=== PATIENT | female | born 1980 | race Caucasian/White ===

== ENCOUNTER 2017-09-11 10:24 | Inpatient (IN) | payer OTHER ==
[~2017-09-11] VITALS: Ht 162.6 cm; Wt 65.8 kg
[2017-09-11 10:36] VITALS: BP 117/87
--- NOTE | 2017-09-11 10:41 | NUR ---
Patient to bed 03.
--- NOTE | 2017-09-11 10:50 | NUR ---
PT PRESENTS TO ER FOR EVALUATION OF RIGHT HIP ABSCESS; ERYTHEMA AND SWELLING NOTED TO ABSCESS; NO DRAINAGE AT THIS TIME; PT STATES SHE HAS HAD COSMETIC WORK DENVER TO BUTTOCK X 1 MONTH AGO; PT DENIES RECENT FEVERS; DENIES N/V/D; SKIN IS PINK/WARM/DRY; AOX4 WITH EVEN AND STEADY GAIT; RR ARE EVEN AND UNLABORED; PATIENT STATES PAIN OF "SHARP" NONRAIDIATING 8/10 TO RIGHT HIP AT THIS TIME; VSS; PATIENT POSITIONED FOR COMFORT; BED DOWN. ER MD MADE AWARE OF PT STATUS.
--- NOTE | 2017-09-11 11:01 | NUR ---
Dr. Cano evaluating patient at bedside.
[2017-09-11] MEDS ORDERED: CLINDAMYCIN 600 MG in DEXTROSE 5% 50 ML IV ONE (11:05)
[2017-09-11] MEDS ORDERED: MORPHINE SULFATE 4 MG/ML SYR IVP ONE ×2 (11:05→15:10)
[2017-09-11] MEDS ORDERED: ONDANSETRON 4 MG/2 ML VIAL IVP ONE ×2 (11:05→15:10)
--- NOTE | 2017-09-11 11:20 | NUR ---
LAB BY BEDSIDE
[2017-09-11 11:37] LABS: BASOPHILS # (AUTO) 0.1 K/uL (0.00-0.22); BASOPHILS % (AUTO) 1.3 % (0.0-2.0); EOSINOPHILS # (AUTO) 0.1 K/uL (0-0.4); EOSINOPHILS % (AUTO) 0.6 % (0.0-4.0); HEMATOCRIT 37.9 % (36-48); HEMOGLOBIN 12.2 g/dL (12.0-16.0); LYMPHOCYTES # (AUTO) 1.6 K/uL (2.5-16.5); LYMPHOCYTES % (AUTO) 13.8 % (20.5-51.1); MEAN CORPUSCULAR HEMOGLOBIN 29 pg (27-31); MEAN CORPUSCULAR HGB CONC 32 g/dL (33-37); MEAN CORPUSCULAR VOLUME 89 fL (80-94); MONOCYTES # (AUTO) 1.2 K/uL (0.8-1.0); MONOCYTES % (AUTO) 10.7 % (1.7-9.3); NEUTROPHILS # (AUTO) 8.3 K/uL (1.8-7.7); NEUTROPHILS % (AUTO) 73.6 % (42.2-75.2); PLATELET COUNT (AUTO) 424 K/uL (140-450); RED BLOOD CELL COUNT(AUTO) 4.25 MIL/uL (4.20-5.40); RED CELL DISTRIBUTION WIDTH 12.7 % (11.6-13.7); WHITE BLOOD COUNT (AUTO) 11.3 K/uL (4.8-10.8)
[2017-09-11] MEDS ORDERED: CLINDAMYCIN 600 MG/4 ML VIAL ONE (11:41)
--- NOTE | 2017-09-11 11:58 | NUR ---
lab called for results of urine ; er md blanchard notified and aware
[2017-09-11 11:59] LABS: APPEARANCE,URINE HAZY (CLEAR); BILIRUBIN,URINE NEGATIVE (NEGATIVE); BLOOD, URINE NEGATIVE (NEGATIVE); COLOR,URINE YELLOW (YELLOW); LEUKOCYTE ESTERASE ,URINE NEGATIVE (NEGATIVE); NITRITE, URINE NEGATIVE (NEGATIVE); UGLUCOSE NEGATIVE (NEGATIVE)
[2017-09-11 11:59] LABS: ANION GAP 6.6 (8-16); CARBON DIOXIDE 29.9 mmol/L (21-32); CREATININE 0.7 mg/dL (0.6-1.3); POTASSIUM 3.5 mmol/L (3.5-5.1)
[2017-09-11 12:04] LABS: PROTHROMBIN TIME 10.4 secs (10.8-13.4)
[2017-09-11 12:15] LABS: BARBITURATE, URINE NEG. ng/ml (NEG <=200); BENZODIAZEPINE, URINE NEG. ng/mL (NEG <=200); CANNABINOID, URINE NEG. ng/mL (NEG <=50); COCAINE, URINE NEG. ng/mL (NEG <=300); OPIATE, URINE NEG. ng/mL (NEG <=2000); PHENCYCLIDINE SCREEN,URINE NEG. ng/mL (NEG <=25)
--- NOTE | 2017-09-11 12:30 | NUR ---
Patient taken to CT via wheelchair per tech.
--- NOTE | 2017-09-11 13:02 | NUR ---
PT RESTING WITH EYES CLOSED IN [facility]; NAD; VSS; WILL CONTINUE TO MONTIOR
--- NOTE | 2017-09-11 15:01 | NUR ---
PT RESTING WITH EYES CLOSED IN [facility]; PT WITH NO COMPLAINTS; NAD; VSS
[2017-09-11] MEDS ORDERED: LORazepam 2 MG/ML VIAL IVP PRN (15:15)
[2017-09-11] MEDS ORDERED: VANCOMYCIN PER PHARMACY MC PRN (15:15)
[2017-09-11] MEDS ORDERED: ONDANSETRON 4 MG/2 ML VIAL IVP PRN (15:15)
--- NOTE | 2017-09-11 15:35 | NUR ---
Patient will be admitted to care of MD JEAN BAPTISTE. Admited to Med Surg. Will go to room 112A. Belongings list completed. Report to Connie SALGADO.
[2017-09-11] MEDS: NACL 0.9% 1,000 ML IV SCH (16:04)
--- NOTE | 2017-09-11 16:15 | NUR ---
PATIENT WAS TRANSFERRED TO THE UNIT FROM ER WITH DX OF RIGHT LATERAL BUTTOCK ABSCESS. PATIENT AMBULATED TO BED WITH STEADY GAIT. VITAL SIGN WAS TAKEN. NARES WERE SWAPPED FOR MRSA AND SENT TO LAB. PATIENT IS ORIENTED TO STAFF, ROOM, CALL LIGHT WITHIN REACH. INITIAL ASSESSMENT WAS DONE AT BEDSIDE. PATIENT A/O X 4, PUPILS EQUAL REACTIVE TO LIGHT, LUNGS SOUND CLEAR THROUGHOUT, CARDIAC WITH REGULAR RHYTHM. SKIN INTACT, DRY AND WARM TO THE TOUCH, WITH AN INTACT WOUND ON THE RIGHT LATERAL BUTTOCK. BOWEL SOUND ACTIVE ON 4 QUADRANTS. VERBALIZED PAIN 10/10 ON THE WOUND AREA. IV 20G ON RIGHT AC, INTACT, PATENT, WILL HANG NS 100ML/HR. WILL CONTINUE TO MONITOR
[2017-09-11] MEDS: HYDROcodone/APAP 5/325 MG 1 TAB TAB PO PRN (16:19)
[2017-09-11 16:36] VITALS: BP 95/56
[2017-09-11] MEDS: VANCOMYCIN 1GM/DEXT 5% PREMIX 200 ML IV SCH (17:11)
--- NOTE | 2017-09-11 18:32 | NUR ---
PATIENT IS AWAKE, ALERT, WATCHING TV. NO DISTRESS NOTED. CALL LIGHT WITHIN REACH. WILL CONTINUE TO MONITOR Addendum: 09/11/17 at 1835 by Varsha Aquino RN IV INTACT, PATENT, IV FLUID INFUSING, NO COMPLAIN OF PAIN AT THIS TIME
--- NOTE | 2017-09-11 19:14 | NUR ---
ENDORSEMENT GIVEN TO PROCTOLOGIST NURSE, PATIENT IS STABLE, NO DISTRESS NOTED. CALL LIGHT WITHIN REACH.
--- NOTE | 2017-09-11 19:15 | NUR ---
RECEIVED BEDSIDE REPORT FROM DAY SHIFT NURSE, PT STABLE, NO DISTRESS NOTED, AAO X4, IV TO THE R AC 20G RUNNING NS @ 100ML/HR, INFUSING WELL, SKIN INTACT, ALL SAFETY PRECAUTION MET, INITIAL ASSESSMENT COMPLETED, CALL LIGHT WITHIN REACH, FAMILY BY BEDSIDE, WILL CONTINUE TO MONITOR.
[2017-09-11 20:00] VITALS: BP 110/55
[2017-09-11] MEDS: PIPER/TAZO 3.375GM/D5W PREMIX 50 ML IV SCH (20:22)
[2017-09-11] MEDS: MORPHINE SULFATE 2 MG/ML SYR IVP PRN (20:23)
--- NOTE | 2017-09-11 20:23 | NUR ---
DUE MEDICATION GIVEN, PT C/O OF PAIN 04/15, MEDICATION GIVEN, PT TOLERATED WELL, NO DISTRESS NOTED, CALL LIGHT WITHIN REACH, WILL CONTINUE TO MONITOR.
[2017-09-11] MEDS ORDERED: PIPERACILLIN/TAZOBACTAM 3.375 GM in DEXTROSE 5% 50 ML IV SCH (21:00)
[2017-09-12] VITALS: BP 94/56
[2017-09-12] MEDS: ACETAMINOPHEN 325 MG TAB PO PRN ×2 (00:21→04:22)
--- NOTE | 2017-09-12 00:21 | NUR ---
PT TEMP 101, MEDICATION TYLENOL GIVEN, PT TOLERATED WELL, CALL LIGHT WITHIN REACH, WILL CONTINUE TO MONITOR.
--- NOTE | 2017-09-12 01:15 | NUR ---
RECHECKED PT TEMPERATURE, T 101.2, PT SLEEPING, NO COMPLAIN OF PAIN, CALL LIGHT WITHIN REACH, WILL CONTINUE TO MONITOR.
[2017-09-12] MEDS: NACL 0.9% 1,000 ML IV SCH ×3 (01:32→20:21)
--- NOTE | 2017-09-12 04:22 | NUR ---
PT C/O OF CHILLS AND MILD PAIN, T 99.1, PAIN 3/10, MEDICATED WITH TYLENOL, PT STABLE, NO DISTRESS NOTED, CALL LIGHT WITHIN REACH, WILL CONTINUE TO MONITOR.
[2017-09-12] MEDS: PIPER/TAZO 3.375GM/D5W PREMIX 50 ML IV SCH ×3 (04:36→20:28)
[2017-09-12] MEDS: VANCOMYCIN 1GM/DEXT 5% PREMIX 200 ML IV SCH ×2 (05:43→17:50)
--- NOTE | 2017-09-12 05:43 | NUR ---
DUE MEDICATION GIVEN, PT TOLERATED WELL, NO DISTRESS NOTED, CALL LIGHT WITHIN REACH, WILL CONTINUE TO MONITOR.
[2017-09-12 06:38] LABS: BASOPHILS # (AUTO) 0.1 K/uL (0.00-0.22); BASOPHILS % (AUTO) 0.8 % (0.0-2.0); EOSINOPHILS # (AUTO) 0.1 K/uL (0-0.4); EOSINOPHILS % (AUTO) 0.9 % (0.0-4.0); HEMATOCRIT 32.7 % (36-48); HEMOGLOBIN 10.8 g/dL (12.0-16.0); LYMPHOCYTES # (AUTO) 1.7 K/uL (2.5-16.5); LYMPHOCYTES % (AUTO) 12.9 % (20.5-51.1); MEAN CORPUSCULAR HEMOGLOBIN 29 pg (27-31); MEAN CORPUSCULAR HGB CONC 33 g/dL (33-37); MEAN CORPUSCULAR VOLUME 89 fL (80-94); MONOCYTES # (AUTO) 1.5 K/uL (0.8-1.0); MONOCYTES % (AUTO) 11.1 % (1.7-9.3); NEUTROPHILS # (AUTO) 9.7 K/uL (1.8-7.7); NEUTROPHILS % (AUTO) 74.3 % (42.2-75.2); PLATELET COUNT (AUTO) 416 K/uL (140-450); RED BLOOD CELL COUNT(AUTO) 3.68 MIL/uL (4.20-5.40); RED CELL DISTRIBUTION WIDTH 12.6 % (11.6-13.7); WHITE BLOOD COUNT (AUTO) 13.1 K/uL (4.8-10.8)
[2017-09-12 06:52] LABS: CARBON DIOXIDE 26.9 mmol/L (21-32); CREATININE 0.7 mg/dL (0.6-1.3); POTASSIUM 3.9 mmol/L (3.5-5.1)
--- NOTE | 2017-09-12 07:10 | NUR ---
ENDORSED PT TO AM NURSECHARLENE RN, PT RESTING NO DISTRESS NOTED, CALL LIGHT WITHIN REACH.
--- NOTE | 2017-09-12 07:43 | NUR ---
RECEIVED PT IN BED. AWAKE. ALERT ORIENTEDX4. NO SOB NOTED. DENIES ANY PAIN OR DISCOMFORT AT THIS TIME. AWAITING 0R MUSIC HISTORIAN FOR I&D UNDER DR. JEAN BAPTISTE. CONSENT AND TICKET TO RIDE, IN TO CHART. PT AMBULATORY SAFETY PRECAUTION IN PLACE. CALL LIGHT WITHIN REACH.
[2017-09-12 07:50] VITALS: BP 103/57
--- NOTE | 2017-09-12 07:50 | NUR ---
OR STAFF CAME TO CERTIFIED DIALYSIS TECHNICIAN PT. NO SOB NOTED. PT ON STABLE CONDITION.
[2017-09-12] MEDS ORDERED: BUPIVACAINE-MPF 0.25% 30 ML VIAL INJ ONE (08:33)
[2017-09-12] MEDS ORDERED: SEVOFLURANE 250 ML BTL INH ONE (08:46)
[2017-09-12] MEDS ORDERED: DEXAMETHASONE 4 MG/ML VIAL IVP ONE (08:46)
[2017-09-12] MEDS ORDERED: PROPOFOL 200 MG/20 ML VIAL IV ONE (08:46)
[2017-09-12] MEDS ORDERED: ONDANSETRON 4 MG/2 ML VIAL IVP ONE (08:46)
--- NOTE | 2017-09-12 08:55 | NUR ---
PATIENT HAS BEEN SCREENED AND CATEGORIZED HIGH NUTRITION RISK. PATIENT WILL BE SEEN WITHIN 1-2 DAYS OF ADMISSION. 09/12/17 -09/13/[address]
[2017-09-12] MEDS: ENOXAPARIN 40 MG/0.4 ML SYR SUBQ SCH (09:00)
[2017-09-12] MEDS ORDERED: MORPHINE SULFATE 4 MG/ML SYR ONE (09:06)
[2017-09-12] MEDS ORDERED: fentaNYL 0.05 MG/ML VIAL ONE (09:06)
[2017-09-12] MEDS ORDERED: MIDAZOLAM 2 MG/2 ML VIAL ONE (09:06)
--- NOTE | 2017-09-12 09:35 | NUR ---
FAXED INITIAL REVIEW TO [facility] [phone] PHONE BRENDA [phone]
[2017-09-12] MEDS ORDERED: MORPHINE SULFATE 4 MG/ML SYR IVP PRN ×2 (09:45)
[2017-09-12] MEDS ORDERED: MIDAZOLAM 2 MG/2 ML VIAL IV ONE (09:45)
[2017-09-12] MEDS ORDERED: METOCLOPRAMIDE 10 MG/2 ML INJ VIAL IVP PRN (09:45)
[2017-09-12] MEDS ORDERED: MORPHINE SULFATE 2 MG/ML SYR IVP PRN (09:45)
--- NOTE | 2017-09-12 10:26 | NUR ---
PT CAME BACK FROM OR. NO SOB NOTED. DENIES ANY PAIN OR DISCOMFORT AT THIS TIME. DRESSING ON RIGHT BUTTOCK DRY AND INTACT. VITAL SIGNS TAKEN AND RECORDED.
[2017-09-12 10:30] VITALS: BP 104/62
--- NOTE | 2017-09-12 12:48 | NUR ---
09/12/17 RD INITIAL ASSESSMENT COMPLETED PLEASE REFER TO NUTRITION ASSESSMENT UNDER CARE ACTIVITY FOR ESTIMATED NUTRITIONAL NEEDS. 1. CONTINUE REGULAR DIET TOLERATED PER MD 2. RD TO FOLLOW-UP 5-7 DAYS, LOW RISK JOSE MARCIAL RD
[2017-09-12 16:00] VITALS: BP 87/65
--- NOTE | 2017-09-12 17:26 | NUR ---
AWAITING CALL BACK FROM DR. JEAN BAPTISTE REGARDING CLARIFICATION FOR DRESSING/PACKING FOR RIGHT BUTTOCK WOUND.
--- NOTE | 2017-09-12 17:53 | NUR ---
PT AWAKE IN BED, WATCHING TV. PT VERBALIZED SHE DOESN'T HAVE ANY PAIN OR DISCOMFORT AT THIS TIME AND SHE FEELS SO HAPPY ABOUT IT.
--- NOTE | 2017-09-12 18:39 | NUR ---
PT KEPT CLEAN, DRY AND COMFORTABLE, NEEDS ATTENDED. NO SOB NOTED DENIES ANY PAIN OR DISCOMFORT AT THIS TIME. DRESSING ON RIGHT BUTTOCK CHANGED, SEROSANGUINOUS DRAINAGE NOTED AND SOAKED PAD. NO ACTIVE BLEEDING NOTED. WILL ENDORSE TO NEXT SHIFT, PT ON STABLE CONDITION, FOR CONTINUITY OF CARE.
--- NOTE | 2017-09-12 19:15 | NUR ---
PATIENT REPORT RECEIVED FROM MORNING NURSE AT BEDSIDE. PATIENT IS AWAKE, ALERT, AND ORIENTED. NO SIGNS AND SYMPTOMS OF DISTRESS NOTED. NO COMPLAINTS OF PAIN AT THIS TIME. IV SITE NOTED ON LEFT FOREARM. IVF INFUSING WELL. BED IN LOWEST POSITION, SIDE RAILS UP AND CALL LIGHT WITHIN REACH. WILL CONTINUE TO MONITOR.
[2017-09-12] MEDS: HYDROcodone/APAP 5/325 MG 1 TAB TAB PO PRN (20:32)
[2017-09-13] VITALS: BP 90/55
[2017-09-13] MEDS: ACETAMINOPHEN 325 MG TAB PO PRN (00:53)
--- NOTE | 2017-09-13 01:00 | NUR ---
DRESSING ON RIGHT BUTTOCK CHANGED DUE TO MODERATE SEROSANGUINOUS DRAINAGE. PACKING FROM OR DOCTOR LEFT IN PLACE. NEW ABD PAD APPLIED. SECURED WITH CLOTH TAPE. PATIENT TOLERATED WELL, DENIES PAIN.
[2017-09-13] MEDS: PIPER/TAZO 3.375GM/D5W PREMIX 50 ML IV SCH ×3 (04:22→21:06)
[2017-09-13] MEDS: VANCOMYCIN 1GM/DEXT 5% PREMIX 200 ML IV SCH (06:03)
[2017-09-13] MEDS: NACL 0.9% 1,000 ML IV SCH ×2 (06:42→18:09)
--- NOTE | 2017-09-13 07:18 | NUR ---
PATIENT REPORT GIVEN TO MORNING NURSE. PATIENT IS IN STABLE CONDITION
--- NOTE | 2017-09-13 07:18 | NUR ---
SPOKE WITH BRENDA FROM [facility] ON 09/12 SHE SAID FOR HOME HEALTH USE [facility]. FAX INFORMATION TO [facility] AT [phone].
--- NOTE | 2017-09-13 08:00 | NUR ---
PT RECEIVED IN BED AWAKE ALERT AND ORIENTED X4. PT IS RESPONSIVE TO VERBAL COMMAND APPROPRIATELY AND FOLLOWS COMMAND. PT DENIES ANY PAIN AT THIS TIME. DRESSING TO THE RIGHT BUTTOCKS INTACT. PT IS ASYMPTOMATIC WITH BP IN THE LOW 90'S.
[2017-09-13 08:18] VITALS: BP 90/54
[2017-09-13] MEDS: HYDROcodone/APAP 5/325 MG 1 TAB TAB PO PRN ×2 (08:50→18:09)
--- NOTE | 2017-09-13 09:00 | NUR ---
PT MEDICATED WITH NORCO 1 TAB PO FOR C/O RIGHT BUTTOCKS PAIN 03/15 AT 0850.
[2017-09-13] MEDS: ENOXAPARIN 40 MG/0.4 ML SYR SUBQ SCH (09:06)
[2017-09-13] MEDS ORDERED: ACET-2863 PO (09:40)
--- NOTE | 2017-09-13 11:59 | NUR ---
FAXED CONCURRENT REVIEW TO [facility] [phone] PHONE BRENDA [phone]
--- NOTE | 2017-09-13 13:15 | NUR ---
PT AWAKE IN BED WATCHING TV. PT IS ABLE TO AMBULATE TO THE BATHROOM WITHOUT ANY ASSISTANCE OR C/O DIZZINESS. IVF REMAINS INFUSING ORDERED.
[2017-09-13] MEDS: VANCOMYCIN 750 MG in DEXTROSE 5% 250 ML IV SCH ×2 (13:49→21:06)
--- NOTE | 2017-09-13 14:03 | NUR ---
CALLED DR. RUTHERFORD FOR TASHA RESULT BLOOD CULTURE GRAM POSITIVE COCCI IN [place], HE ORDERED TO CANCEL THE D/C FOR TODAY. SHELBI OLSEN MADE AWARE.
[2017-09-13] MEDS: MORPHINE SULFATE 2 MG/ML SYR IVP PRN (14:09)
--- NOTE | 2017-09-13 14:10 | NUR ---
PT IN BED AWAKE AND RESTING. WOUND CARE NURSE IS AT THE BED SITE TO DO DRESSING CHANGE. MORPHINE SULFATE 2MG IVP GIVEN AT 1409 FOR PAIN 07/16. DR RUTHERFORD WAS NOTIFIED ABOUT GRAM + COCCI IN CLUSTER FROM WOUND CULTURE. DISCHARGE HOME IS CANCELLED FOR TODAY.
[2017-09-13] MEDS ORDERED: ABDOMINAL PAD TP PRN (14:30)
--- NOTE | 2017-09-13 14:33 | NUR ---
WOUND CARE EDUCATION PROVIDES TO PT. PT VERBALIZES UNDERSTAND. ALSO, REQUEST HOME HEALTH FOR WOUND TREATMENT UPON DISCHARGE. PLAN OF CARE DISCUSSED WITH PRIMARY RN AND CHARGE NURSE.
--- NOTE | 2017-09-13 15:20 | NUR ---
DISCHARGE CANCELED TODAY. I CALLED [facility] AND BRENDA FROM [facility] AND INFORMED THEM.
--- NOTE | 2017-09-13 15:22 | NUR ---
FAXED RESULTS OF BLOOD CULTURE AND CULTURE OF WOUND TO [facility] [phone] PHONE [phone]
[2017-09-13 16:37] VITALS: BP 92/63
--- NOTE | 2017-09-13 19:39 | NUR ---
PT UP SITTING IN BED AWAKE ALERT AND CAM. PT WAS MEDICATED WITH NORCO AT 1809 FOR RIGHT BUTTOCK PAIN 5. IVF REMAINS INFUSING ORDERED. PT'S FAMILY AT THE BED SIDE WITH PT. NO ACUTE DISTRESS NOTED.
--- NOTE | 2017-09-13 19:40 | NUR ---
RECD. RESTING IN BED, AWAKE, A/OX4. RESPIRATION EVEN AND UNLABORED. IV OF NS AT 100 ML/HR INFUSING, LEFT FOREARM G22. INCISION IN THE RIGHT BUTTOCKS, COVERED WITH DRESSING, DRY AND INTACT. PAIN IN THE SITE 11/15, STATED TOLERABLE, WILL MEDICATE ORDERED.PLAN OF CARE FOR THE SHIFT DISCUSSED. VERBALIZED UNDERSTANDING.
[2017-09-13 20:00] VITALS: BP 85/51
--- NOTE | 2017-09-13 21:35 | NUR ---
INFORMED DR. SHEA, ON-CALL FOR DR. RUTHERFORD, PATIENT BP IN THE LOW SIDE, 83/45 ON THE RIGHT AND 85/51 ON THE LEFT ARM, ORDERED ALBUMIN IV FOR PATIENT.
[2017-09-13] MEDS ORDERED: ZOLPIDEM 5 MG TAB PO PRN (21:45)
[2017-09-13] MEDS ORDERED: HYDROcodone/APAP 5/325 MG 1 TAB TAB PO PRN (21:45)
--- NOTE | 2017-09-13 22:40 | NUR ---
UNABLE TO SLEEP, MEDICATED WITH AMBIEN 5 MG. ORDERED.
--- NOTE | 2017-09-13 23:22 | NUR ---
INFORMED DR. SHEA, PATIENT MICROBIOLOGY RESULT, MRSA OF THE WOUND AND PRELIMINARY RESULT OF BLOOD CULTURE, PATIENT HAS GRAM POSITIVE COCCI. NO NEW ORDER MADE.
[2017-09-14 00:34] VITALS: BP 83/48
[2017-09-14] MEDS: ALBUMIN HUMAN 25% 100 ML IV PRN ×2 (00:34→02:46)
--- NOTE | 2017-09-14 00:34 | NUR ---
BP STILL IN THE LOW SIDE, BP RIGHT ARM, 78/41, HR - 56, LEFT ARM - 83/49, HR - 58. MEDICATED WITH ALBUMIN 25% IVPB BY DAMIAN ALBARRAN ORDERED.
--- NOTE | 2017-09-14 02:46 | NUR ---
2ND ALBUMIN DOSE GIVEN BY DAMIAN ALBARRAN ORDERED.
[2017-09-14] MEDS: NACL 0.9% 1,000 ML IV SCH ×2 (03:12→13:33)
--- NOTE | 2017-09-14 04:50 | NUR ---
2 BOTTLES ALBUMIN INFUSED BY RN, BP CHECKED - 90/52, HR -60. RESTING COMFORTABLY SLEEPING IN BED.
[2017-09-14] MEDS: PIPER/TAZO 3.375GM/D5W PREMIX 50 ML IV SCH ×3 (04:53→21:00)
[2017-09-14] MEDS: VANCOMYCIN 750 MG in DEXTROSE 5% 250 ML IV SCH ×3 (04:56→21:00)
[2017-09-14 06:53] LABS: BASOPHILS # (AUTO) 0.2 K/uL (0.00-0.22); BASOPHILS % (AUTO) 4.1 % (0.0-2.0); EOSINOPHILS # (AUTO) 0.1 K/uL (0-0.4); HEMATOCRIT 31.5 % (36-48); HEMOGLOBIN 10.2 g/dL (12.0-16.0); LYMPHOCYTES # (AUTO) 2.7 K/uL (2.5-16.5); LYMPHOCYTES % (AUTO) 46.2 % (20.5-51.1); MEAN CORPUSCULAR HEMOGLOBIN 29 pg (27-31); MEAN CORPUSCULAR HGB CONC 33 g/dL (33-37); MEAN CORPUSCULAR VOLUME 90 fL (80-94); MONOCYTES # (AUTO) 0.5 K/uL (0.8-1.0); MONOCYTES % (AUTO) 7.7 % (1.7-9.3); NEUTROPHILS # (AUTO) 2.4 K/uL (1.8-7.7); PLATELET COUNT (AUTO) 518 K/uL (140-450); RED BLOOD CELL COUNT(AUTO) 3.51 MIL/uL (4.20-5.40); RED CELL DISTRIBUTION WIDTH 12.3 % (11.6-13.7); WHITE BLOOD COUNT (AUTO) 5.9 K/uL (4.8-10.8)
[2017-09-14 07:16] LABS: ANION GAP 9.9 (8-16); CARBON DIOXIDE 29.9 mmol/L (21-32); CREATININE 0.6 mg/dL (0.6-1.3); POTASSIUM 3.8 mmol/L (3.5-5.1)
--- NOTE | 2017-09-14 07:20 | NUR ---
ENDORSED TO AM NURSE FOR CONTINUITY OF CARE.
--- NOTE | 2017-09-14 07:21 | NUR ---
RECEIVED REPORT FROM PROFESSOR SCULPTURE NURSE AT BEDSIDE FOR CONTINUITY OF CARE. PT IS LYING IN BED RIGHT NOW. INTRODUCED SELF AND UPDATED BOARD. NO SIGNS OF DISTRESS WILL CONTINUE TO MONITOR.
[2017-09-14 08:00] VITALS: BP 97/57
[2017-09-14] MEDS ORDERED: VANC1PLA9 IV (09:26)
[2017-09-14] MEDS: ENOXAPARIN 40 MG/0.4 ML SYR SUBQ SCH (09:52)
--- NOTE | 2017-09-14 15:02 | NUR ---
CM NOTE PER JAYLEEN FROM [facility], UNABLE TO DO IV ABX TX; NO IV NURSE AVAILABLE. PER YEIMI FROM [facility], UNABLE TO DO IV ABX TX, NO IV NURSE AVAILABLE. FAXED INFORMATION TO LEIGH ANN FROM [facility]. BECAUSE OF THE FREQUENCY OF IV ABX, PATIENT & FAMILY WILL HAVE TO BE TAUGHT RE. INFUSION.
--- NOTE | 2017-09-14 15:16 | NUR ---
CM NOTE HOME IV ABX TX ORDER FAXED TO [facility] / FAX# [phone]
[2017-09-14] MEDS ORDERED: NACL 0.9% IRR 250 ML BOTTLE IR SCH (15:30)
[2017-09-14] MEDS ORDERED: ABDOMINAL PAD TP SCH (15:30)
[2017-09-14] MEDS: MORPHINE SULFATE 2 MG/ML SYR IVP PRN (15:34)
--- NOTE | 2017-09-14 15:46 | NUR ---
ADMINISTERED MORPHINE IVP FOR PAIN IN RIGHT HIP. PT STATED PAIN 6/10 AND REQUESTED PAIN MED PRIOR TO DRESSING CHANGE. REMOVED OLD DRESSING AND PACKING. CLEANSED WITH NS AND PATTED DRY WITH GAUZE. PACKED WITH IODOFORM. COVERED WITH 4X4 GAUZE AND ABDOMINAL PAD. SECURED WITH TAPE. PT TOLERATED WELL. PT'S SIGNIFICANT OTHER IS AT BEDSIDE. PT GOT UP TO USE BATHROOM. NO SIGNS OF DISTRESS. WILL CONTINUE TO MONITOR.
[2017-09-14 16:00] VITALS: BP 94/53
--- NOTE | 2017-09-14 16:00 | NUR ---
RECEIVED CALL FROM PICC LINE NURSE. READ LABS PT/INR, BUN/CREATININE, AND ORDER. STATED HE WILL BE ARRIVING AROUND 7PM TONIGHT FOR PICC LINE INSERTION.
--- NOTE | 2017-09-14 18:00 | NUR ---
CHECKED PT IN ROOM. PT'S SIGNIFICANT OTHER IS AT BEDSIDE. PT IS SITTING UP IN BED EATING DINNER. DENIES PAIN. NO SIGNS OF DISTRESS. CALL LIGHT WITHIN REACH. WILL CONTINUE TO MONITOR.
--- NOTE | 2017-09-14 19:24 | NUR ---
ENDORSED PT TO FIELD SAMPLING TECHNICIAN NURSE RAJENDRA AT BEDSIDE FOR CONTINUITY OF CARE. PT IS IN STABLE CONDITION.
--- NOTE | 2017-09-14 19:25 | NUR ---
RECEIVED REPORT FROM DAY SHIFT NURSE AT BED SIDE. PT IS AAOX4. NO DISTRESS NOTED. IV TO LEFT FA #22G AT 100ML/HR. DRESSING TO LEFT HIP, DRY AND INTACT. PT IS ON CONTACT ISOLATION R/T MRSA OF HIP WOUND. WAITING FOR PICC LINE NURSE FOR PICC LINE INSERTION. DISCUSSED PLAN OF CARE, PT VERBALIZED UNDERSTANDING. CALL LIGHT WITHIN REACH. WILL CONTINUE TO MONITOR.
[2017-09-14 20:00] VITALS: BP 90/54
--- NOTE | 2017-09-14 21:05 | NUR ---
PT REFUSED MEDS STATED THAT SHE IS GOING HOME TONIGHT. EXPLAINED TO HER THAT WE'RE STILL WAITING FOR THE PICC LINE NURSE FOR PICC LINE INSERTION. PT STILL REFUSED MEDS.
--- NOTE | 2017-09-14 21:30 | NUR ---
PICC LINE NURSE IS HERE FOR PICC LINE INSERTION.
--- NOTE | 2017-09-14 21:50 | NUR ---
PICC LINE INSERTED TO LEFT UPPER ARM. PT TOLERATED PROCEDURE WELL. XRAY DONE.
--- NOTE | 2017-09-14 22:10 | NUR ---
DISCHARGE PAPERS AND INSTRUCTIONS GIVEN TO PT. IV CANNULA PULLED OUT, TIP INTACT.
--- NOTE | 2017-09-14 22:30 | NUR ---
PT REFUSED TO BE WHEELED OUT. ID BAND REMOVED. PT WALKED TO FRONT LOBBY ACCOMPANIED BY SIGNIFICANT OTHER. PERSONAL BELONGINGS WITH THE PATIENT. PT IN STABLE CONDITION.
--- NOTE | 2017-09-18 09:58 | NUR ---
DIONY COAL CAGER DIRECTOR RECEIVED A CALL FROM THE PATIENT ON HER ANSWERING MACHINE ON MONDAY, 09/15 STATING SHE WAS WAITING FOR HOME HEALTH TO COME. I CALLED KIMBERLEE THIS MORNING AND SHE SAID THAT SCOTT FROM [facility] CAME TO THE HOUSE ON Monday09/16/17 AND CHANGED THE DRESSING AND TAUGHT HER HOW THE DO THE IV INFUSION. KIMBERLEE SAID SHE HADN'T HEARD FROM THE [facility]. I CALLED TITO FROM [facility] AND SHE SAID SHE WAS GOING TO CALL THE PATIENT THIS AM AND WILL HAVE SOMEONE GO TO THE HOUSE TODAY. SCOTT PHONE [phone] PHONE [facility] [phone]. I CALLED KIMBERLEE AND INFORMED HER THAT SCOTT SAID SHE WOULD CALL HER TODAY. I CALLED BRENDA FROM [facility] AND INFORMED HER.
== END 2017-09-14 22:30 | disposition home health service (06) | DRG 720 ==
LOC: MED 10:24 → MTU 15:16
PROVIDERS: ADMIT Hospitalist; ATTEND Hospitalist
PROC: 0Y900ZZ Drainage of Right Buttock, Open Approach (ICD-10-PCS; 2017-09-12)
PROC: 0JB90ZZ Excision of Buttock Subcutaneous Tissue and Fascia, Open Approach (ICD-10-PCS; principal; 2017-09-12 12:50)
PROC: 02HV33Z Insertion of Infusion Device into Superior Vena Cava, Percutaneous Approach (ICD-10-PCS; 2017-09-14)
PROC: B548ZZA Ultrasonography of Superior Vena Cava, Guidance (ICD-10-PCS; 2017-09-14)
DX: A41.9 Sepsis, unspecified organism (principal); E87.1 Hypo-osmolality and hyponatremia; L02.415 Cutaneous abscess of right lower limb; F17.200 Nicotine dependence, unspecified, uncomplicated; L02.31 Cutaneous abscess of buttock; D64.9 Anemia, unspecified; Z98.891 History of uterine scar from previous surgery
CPT/HCPCS: 36415; 71010; 72193; 80048; 80202; 80305; 81003; 81025; 83605; 83735; 85025; 85610; 85730; 87040; 87070; 87075; 87077; 87081; 87186; 87205; 96365; 96375; 96376; 99285; C1751; J1100; J1650; J2250; J2270; J2405; J2543; J2704; J3010; J3370; J3490; J7030; J7060; P9046; Q0092; Q9967

== ENCOUNTER 2020-12-11 10:53 | Emergency (ER) | payer OTHER ==
[~2020-12-11] VITALS: Ht 165.1 cm; Wt 78.0 kg
[~2020-12-11 10:53] MED LIST: HYDR-5080 PO; VANC1PLA9 IV
[2020-12-11 10:57] VITALS: BP 125/87
--- NOTE | 2020-12-11 11:02 | NUR ---
PT AMBULATED TO BED 11, STEADY GAIT.
[2020-12-11] MEDS ORDERED: NACL 0.9% 1,000 ML IV SCH (11:30)
--- NOTE | 2020-12-11 11:31 | NUR ---
40 YEAR OLD FEMALE COMPLAINS OF PAIN IN ABDOMEN X 2 WEEKS. 10/10 PAIN RADIATING THROUGHOUT ABDOMEN, SHARP. DENIED VOMINITING/DIARRHEA, VERBALIZED NAUSEA. PATIENT VERBALIZED BLOATING. NORMAL BOWEL MOVEMENTS, ACTIVE BOWEL SOUNDS THROUGHOUT. PATIENT DENIES PRESENCE OF BLOOD IN STOOL. AO4, BREATHING EVEN AND UNLABORED, SKIN WARM AND DRY. BED IN LOWEST POSITION, LOCKED, X1 SIDERAIL UP. PMH - DENIED NKA
[2020-12-11 11:44] LABS: BASOPHILS % (AUTO) 0.8 % (0.0-2.0); EOSINOPHILS # (AUTO) 0.2 K/uL (0-0.4); EOSINOPHILS % (AUTO) 3.4 % (0.0-4.0); HEMATOCRIT 42.7 % (36-48); HEMOGLOBIN 14.2 g/dL (12.0-16.0); LYMPHOCYTES % (AUTO) 33.3 % (20.5-51.1); MEAN CORPUSCULAR HEMOGLOBIN 30 pg (27-31); MEAN CORPUSCULAR HGB CONC 33 g/dL (33-37); MEAN CORPUSCULAR VOLUME 90.5 fL (80-94); MONOCYTES # (AUTO) 0.6 K/uL (0.8-1.0); MONOCYTES % (AUTO) 10.5 % (1.7-9.3); NEUTROPHILS # (AUTO) 3.2 K/uL (1.8-7.7); PLATELET COUNT (AUTO) 267 K/uL (140-450); RED BLOOD CELL COUNT(AUTO) 4.72 MIL/uL (4.20-5.40); RED CELL DISTRIBUTION WIDTH 13.8 % (11.6-13.7); WHITE BLOOD COUNT (AUTO) 6.1 K/uL (4.8-10.8)
--- NOTE | 2020-12-11 11:57 | NUR ---
Patient taken to CT scan via wheelchair by tech.
[2020-12-11 12:03] LABS: ALBUMIN 4.2 g/dL (3.4-5.0); ANION GAP 16.1 (8-16); CARBON DIOXIDE 22.4 mmol/L (21-32); CREATININE 0.6 mg/dL (0.6-1.3); POTASSIUM 3.5 mmol/L (3.5-5.1); TOTAL BILIRUBIN 0.3 mg/dL (0.0-1.0)
[2020-12-11 12:04] LABS: PROTHROMBIN TIME 8.7 secs (10.8-13.4)
[2020-12-11 13:09] LABS: APPEARANCE,URINE CLEAR (CLEAR); BILIRUBIN,URINE NEGATIVE (NEGATIVE); BLOOD, URINE TRACE-I (NEGATIVE); COLOR,URINE YELLOW (YELLOW); LEUKOCYTE ESTERASE ,URINE NEGATIVE (NEGATIVE); NITRITE, URINE NEGATIVE (NEGATIVE); PH,URINE 5.5 (5.0-9.0); UGLUCOSE NEGATIVE (NEGATIVE)
--- NOTE | 2020-12-11 13:18 | NUR ---
Dr. Gillespie is evaluating the patient at bedside.
[2020-12-11] MEDS ORDERED: ALUMINUM HYD/MAG/SIMETHICONE 30 ML UDC PO ONE (13:20)
[2020-12-11] MEDS ORDERED: FAMOTIDINE 20 MG/2 ML VIAL IVP ONE (13:20)
--- NOTE | 2020-12-11 14:30 | NUR ---
Patient discharged with v/s stable. Written and verbal after care instructions ABOUT GASTRITIS AND ABDOMINAL PAIN given and explained. Patient alert, oriented and verbalized understanding of instructions. Ambulatory with steady gait. All questions addressed prior to discharge. ID band removed. Patient advised to follow up with PMD. Rx of ZOFRAN, ACETAMINOPHEN, AND OMEPRAZOLE given. Patient educated on indication of medication including possible reaction and side effects. Opportunity to ask questions provided and answered.
[2020-12-11 14:35] VITALS: BP 99/62
== END 2020-12-11 14:30 | disposition home or self-care (01) ==
LOC: MED 10:53
DX: K29.70 Gastritis, unspecified, without bleeding (principal); F17.200 Nicotine dependence, unspecified, uncomplicated; Z79.899 Other long term (current) drug therapy
CPT/HCPCS: 36415; 74176; 80053; 81003; 81025; 83605; 83690; 85025; 85610; 85730; 87040; 96361; 96374; 99284; J3490; J7030

== ENCOUNTER 2021-01-06 05:36 | Day surgery (SDC) | payer OTHER, SELFPAY ==
[2021-01-06] MEDS ORDERED: PROPOFOL 200 MG/20 ML VIAL IV ONE (07:10)
[2021-01-06] MEDS ORDERED: MIDAZOLAM 2 MG/2 ML VIAL ONE (07:10)
[2021-01-06] MEDS ORDERED: fentaNYL citrate 0.05 MG/ML VIAL ONE (07:10)
[2021-01-06 07:33] LABS: ALBUMIN 3.9 g/dL (3.4-5.0); ANION GAP 13.5 (8-16); CARBON DIOXIDE 26.3 mmol/L (21-32); CREATININE 0.5 mg/dL (0.6-1.3); POTASSIUM 3.8 mmol/L (3.5-5.1); TOTAL BILIRUBIN 0.5 mg/dL (0.0-1.0)
[2021-01-06] MEDS ORDERED: ONDANSETRON 4 MG/2 ML VIAL IVP PRN (08:00)
[2021-01-06] MEDS ORDERED: LACTATED RINGERS 1,000 ML IV SCH (08:00)
== END 2021-01-06 09:50 | disposition home or self-care (01) ==
LOC: MDS 05:36 → MFCC 06:25 → MDS 09:50
PROVIDERS: ATTEND Internal Medicine Gastroenterology
DX: R10.9 Unspecified abdominal pain (principal); K44.9 Diaphragmatic hernia without obstruction or gangrene; R14.1 Gas pain; R14.0 Abdominal distension (gaseous); E66.9 Obesity, unspecified; Z20.828 Contact with and (suspected) exposure to other viral communicable diseases
CPT/HCPCS: 36415; 43239; 45378; 71045; 80053; 81025; J2250; J2704; J3010; J7030; U0003

== ENCOUNTER 2022-09-16 13:12 | Emergency (ER) | payer OTHER ==
[~2022-09-16] VITALS: Ht 162.6 cm; Wt 70.3 kg
[2022-09-16 13:15] VITALS: BP 145/104
--- NOTE | 2022-09-16 13:35 | NUR ---
Patient ambulated with steady gait to bed 6.
--- NOTE | 2022-09-16 14:10 | NUR ---
Dr. Mcdermott evaluating patient at bedside.
[2022-09-16 14:21] LABS: BASOPHILS % (AUTO) 0.9 % (0.0-2.0); EOSINOPHILS # (AUTO) 0.2 K/uL (0-0.4); HEMATOCRIT 43.2 % (36-48); LYMPHOCYTES # (AUTO) 1.8 K/uL (2.5-16.5); LYMPHOCYTES % (AUTO) 35.6 % (20.5-51.1); MEAN CORPUSCULAR HEMOGLOBIN 29 pg (27-31); MEAN CORPUSCULAR HGB CONC 32 g/dL (33-37); MEAN CORPUSCULAR VOLUME 90.1 fL (80-94); MONOCYTES # (AUTO) 0.4 K/uL (0.8-1.0); NEUTROPHILS # (AUTO) 2.6 K/uL (1.8-7.7); NEUTROPHILS % (AUTO) 51.5 % (42.2-75.2); PLATELET COUNT (AUTO) 291 K/uL (140-450)
--- NOTE | 2022-09-16 14:22 | NUR ---
X-Ray at bedside.
[2022-09-16] MEDS ORDERED: LORazepam 1 MG TAB PO ONE (14:25)
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
[2022-09-16 14:49] LABS: ALBUMIN 3.6 g/dL (3.4-5.0); ANION GAP 9.9 (8-16); ASPARTATE AMINOTRANSFERASE 78 U/L (15-37); CARBON DIOXIDE 26.7 mmol/L (21-32); CHLORIDE 109 mmol/L (98-107); CREATININE 0.6 mg/dL (0.6-1.3); GFR ARICAN-AMERICAN 141 mL/min (>90); GLUCOSE 100 mg/dL (74-106); POTASSIUM 3.6 mmol/L (3.5-5.1); SODIUM SERUM 142 mmol/L (136-145); TOTAL BILIRUBIN 0.4 mg/dL (0.0-1.0); UREA NITROGEN, BLOOD 6 mg/dL (7-18)
[2022-09-16 15:48] VITALS: BP 136/91
--- NOTE | 2022-09-16 15:48 | NUR ---
Patient discharged with v/s stable. Written and verbal after care instructions given. Patient verbalized understanding. Ambulatory with steady gait. All questions addressed prior to discharge. Advised to follow up with PMD.
--- NOTE | 2022-09-16 15:51 | NUR ---
The patient's care was reviewed and supervised by ED Agency Nurse 8, RN, RN.
== END 2022-09-16 15:48 | disposition home or self-care (01) ==
LOC: MED 13:12
DX: R55 Syncope and collapse (principal); R42 Dizziness and giddiness; R10.9 Unspecified abdominal pain
CPT/HCPCS: 36415; 71045; 80053; 81002; 81025; 83880; 84484; 85025; 93005; 99285

== ENCOUNTER 2023-02-02 08:18 | Day surgery (SDC) | payer OTHER ==
[~2023-02-02] VITALS: Ht 165.1 cm; Wt 85.7 kg
[~2023-02-02 08:18] MED LIST changes: +BUPIVACAINE-MPF 0.25% 30 ML VIAL INJ ONE; -HYDR-5080 PO; +LIDOCAINE 1% 500 MG/50 ML VIAL ONE; -VANC1PLA9 IV
[2023-02-02] MEDS ORDERED: SEVOFLURANE 250 ML BTL INH ONE (10:14)
[2023-02-02] MEDS ORDERED: BUPIVACAINE-MPF/EPI 0.25% 30 ML VIAL INJ ONE (10:16)
[2023-02-02] MEDS ORDERED: LIDOCAINE/EPI MPF 1%1:200000 30 ML VIAL INJ ONE (10:16)
[2023-02-02] MEDS ORDERED: fentaNYL citrate 0.05 MG/ML VIAL ONE (10:29)
[2023-02-02] MEDS ORDERED: PROPOFOL 200 MG/20 ML VIAL IV ONE (11:08)
[2023-02-02] MEDS ORDERED: ROCURONIUM 50 MG/5 ML VIAL IV ONE (11:08)
[2023-02-02] MEDS ORDERED: KETOROLAC 30 MG/ML VIAL ONE (11:09)
[2023-02-02] MEDS ORDERED: ONDANSETRON 4 MG/2 ML VIAL ONE (11:09)
[2023-02-02] MEDS ORDERED: NEOSTIGMINE 1:1000 10 MG/10 ML VIAL ONE (12:02)
[2023-02-02] MEDS ORDERED: GLYCOPYRROLATE 0.2 MG/ML VIAL ONE ×5 (12:03)
[2023-02-02] MEDS ORDERED: MORPHINE SULFATE 2 MG/ML SYR IVP PRN (12:15)
[2023-02-02] MEDS ORDERED: HYDROmorphone 1 MG/ML AMP IVP PRN (12:15)
[2023-02-02] MEDS ORDERED: MORPHINE SULFATE 4 MG/ML SYR IV PRN (12:15)
[2023-02-02] MEDS ORDERED: ONDANSETRON 4 MG/2 ML VIAL IV PRN (12:15)
[2023-02-02] MEDS ORDERED: LACTATED RINGERS 1,000 ML IV SCH (12:20)
[2023-02-02] MEDS ORDERED: METOCLOPRAMIDE 10 MG/2 ML INJ VIAL IVP PRN (12:21)
[2023-02-02] MEDS ORDERED: LABETALOL 20 MG/4 ML VIAL IVP PRN (12:21)
[2023-02-02] MEDS ORDERED: hydrALAZINE 20 MG/ML VIAL IVP PRN (12:21)
[2023-02-02] MEDS: HYDROmorphone 1 MG/ML AMP IVP PRN ×4 (12:35→13:05)
[2023-02-02] MEDS ORDERED: HYDROmorphone PFS 2 MG/ML SYR ONE (12:43)
== END 2023-02-02 14:40 | disposition home or self-care (01) ==
LOC: MOR 08:18 → MMU 08:19 → MOR 14:40
PROVIDERS: ATTEND Surgery
DX: K80.10 Calculus of gallbladder with chronic cholecystitis without obstruction (principal); Z20.822 Contact with and (suspected) exposure to COVID-19; Z79.899 Other long term (current) drug therapy
CPT/HCPCS: 36415; 47563; 74300; 86886; 86900; 86901; 87426; C1887; J0690; J1170; J1885; J2001; J2405; J2704; J2710; J3010; J3490; J7060; J7120; Q9965; 88304

== ENCOUNTER 2024-08-07 19:37 | Emergency (ER) | payer OTHER ==
[~2024-08-07] VITALS: Ht 256.5 cm; Wt 81.6 kg
[2024-08-07 19:45] VITALS: BP 130/91; PULSE 82; RESP 16; TEMP 98.2; O2SAT 100
[2024-08-07 20:06] VITALS: TEMP 98.4; O2SAT 99
[2024-08-07 20:56] LABS: BASOPHILS % (AUTO) 0.5 % (0.0-2.0); EOSINOPHILS # (AUTO) 0.1 K/uL (0-0.4); EOSINOPHILS % (AUTO) 0.9 % (0.0-4.0); HEMATOCRIT 45.2 % (36-48); HEMOGLOBIN 15.1 g/dL (12.0-16.0); LYMPHOCYTES # (AUTO) 2.4 K/uL (2.5-16.5); LYMPHOCYTES % (AUTO) 35.6 % (20.5-51.1); MEAN CORPUSCULAR HEMOGLOBIN 30 pg (27-31); MEAN CORPUSCULAR HGB CONC 34 g/dL (33-37); MEAN CORPUSCULAR VOLUME 90.3 fL (80-94); MONOCYTES # (AUTO) 0.7 K/uL (0.8-1.0); MONOCYTES % (AUTO) 10.6 % (1.7-9.3); NEUTROPHILS # (AUTO) 3.6 K/uL (1.8-7.7); NEUTROPHILS % (AUTO) 52.4 % (42.2-75.2); PLATELET COUNT (AUTO) 226 K/uL (140-450); RED BLOOD CELL COUNT(AUTO) 5.01 MIL/uL (4.20-5.40); WHITE BLOOD COUNT (AUTO) 6.8 K/uL (4.8-10.8)
[2024-08-07 21:06] LABS: INR 0.97 (0.8-1.2); PARTIAL THROMBOPLASTIN TIME 26.3 secs (22-35.6); PROTHROMBIN TIME 10.2 secs (10.8-13.4)
[2024-08-07 21:07] LABS: ANION GAP 15.8 (8-16); CALCIUM 9.2 mg/dL (8.5-10.1); CARBON DIOXIDE 25.8 mmol/L (21-32); CREATININE 0.7 mg/dL (0.6-1.3); POTASSIUM 3.6 mmol/L (3.5-5.1)
[2024-08-07 21:26] LABS: ALANINE AMINOTRANSFERASE 97 U/L (12-78); ALKALINE PHOSPHATASE 77 U/L (50-136); ASPARTATE AMINOTRANSFERASE 97 U/L (15-37); BILIRUBIN,DIRECT 0.2 mg/dL (0.0-0.3); LIPASE 54 U/L (16-77); TOTAL BILIRUBIN 0.6 mg/dL (0.0-1.0); TOTAL PROTEIN, SERUM 8.1 g/dL (6.4-8.2)
[2024-08-07 22:41] VITALS: BP 127/88; PULSE 68; RESP 16; O2SAT 98
== END 2024-08-07 22:36 | disposition home or self-care (01) ==
LOC: MED 19:37
DX: R06.02 Shortness of breath (principal); R07.9 Chest pain, unspecified; F41.9 Anxiety disorder, unspecified
CPT/HCPCS: 36415; 71045; 80048; 80076; 81025; 83690; 83880; 84484; 85025; 85610; 85730; 93005; 99285